=== PATIENT | female | born 1955 | race Caucasian/White ===

== ENCOUNTER 2016-10-07 15:15 | Day surgery (SDC) | payer MEDICARE, BC ==
[~2016-10-07] VITALS: Ht 167.6 cm; Wt 101.0 kg
[~2016-10-07 15:15] MED LIST: HEPARIN SODIUM - IV 10,000 UNITS/10 ML VIAL ONE; HEPARIN-NS/PF INJ 500 ML ONE; MIDAZOLAM HCL 2 MG/2 ML VIAL ONE; VERAPAMIL HCL 5 MG/2 ML VIAL ONE
[2016-10-07] MEDS ORDERED: MULT400T PO (16:05)
[2016-10-07] MEDS ORDERED: METO50TA PO (16:05)
[2016-10-07] MEDS ORDERED: ROSU40 PO (16:05)
[2016-10-07] MEDS ORDERED: WARF-23 PO (16:05)
[2016-10-07 16:06] VITALS: BP 148/97; PULSE 89; RESP 18; TEMP 98.1; O2SAT 97
[2016-10-07] MEDS ORDERED: POVIDONE IODINE 5% (ANTISEPSIS KIT) 4 APPLICATIONS EACH NARE PRN (16:30)
[2016-10-07] MEDS ORDERED: SODIUM CHLORID 0.9% 500 ML IV PRN (16:30)
[2016-10-07] MEDS ORDERED: INSULIN HUMAN REGULAR 1,000 UNITS/10 ML VIAL SQ PRN (16:30)
[2016-10-07] MEDS ORDERED: LEVOFLOXACIN 500 MG PREMIX INJ 100 ML IV ONE (16:30)
[2016-10-07] MEDS ORDERED: METOPROLOL TARTRATE 25 MG TAB PO PRN (16:30)
[2016-10-07] MEDS ORDERED: LACTATED RINGER'S 1000 ML IV PRN (16:30)
[2016-10-07] MEDS ORDERED: LORazepam 1 MG TAB SL SCH (16:30)
[2016-10-07] MEDS ORDERED: CHLORHEXIDINE GLUCONATE 2 % 1 PACK (2 CLOTHS) TOPICAL PRN (16:30)
[2016-10-07] MEDS ORDERED: SODIUM CHLORID 0.9% 500 ML INJ 500 ML IV SCH (16:30)
[2016-10-07 16:49] LABS: AUTOMATED NEUTROPHIL # 5.4 TH/MM3 (1.8-7.7); BASOPHIL # 0.1 TH/MM3 (0-0.2); BASOPHIL % 0.8 % (0.0-2.0); EOSINOPHIL # 0.1 TH/MM3 (0-0.4); EOSINOPHIL % 1.1 % (0.0-4.0); HEMATOCRIT 41.7 % (35.0-46.0); HEMO FLAGS DIFF FINAL; LYMPH % 31.8 % (9.0-44.0); MEAN CELL VOLUME 89.1 FL (80.0-100.0); MEAN CORPUSCULAR HEMOGLOBIN 29.6 PG (27.0-34.0); MEAN CORPUSCULAR HGB CONC 33.3 % (32.0-36.0); MONO % 7.6 % (0.0-8.0); NEUT % 58.7 % (16.0-70.0); PLATELET COUNT 355 TH/MM3 (150-450); RED BLOOD COUNT 4.68 MIL/MM3 (4.00-5.30); RED CELL DISTRIBUTION WIDTH 13.8 % (11.6-17.2); WHITE BLOOD COUNT 9.3 TH/MM3 (4.0-11.0)
[2016-10-07 16:53] LABS: APTT (PATIENT) 40.9 SEC (24.3-30.1); INTERNATIONAL NORMALIZED RATIO 2.3 RATIO; PROTHROMBIN TIME - PATIENT 26.2 SEC (9.8-11.6)
[2016-10-07 16:58] LABS: POTASSIUM 3.9 MEQ/L (3.5-5.1)
[2016-10-07] MEDS ORDERED: PROPOFOL 200 MG/20 ML AMP IV ONE (17:03)
[2016-10-07] MEDS ORDERED: SODIUM CHLORID 0.9% 500 ML BAG IV ONE (17:03)
[2016-10-07] MEDS ORDERED: HEPARIN SODIUM - IV 10,000 UNITS/10 ML VIAL ONE (17:07)
[2016-10-07] MEDS ORDERED: PROTAMINE SULFATE 50 MG/5 ML VIAL ONE (17:07)
[2016-10-07] MEDS ORDERED: HEPARIN-D5W INJ 250 ML ONE (17:07)
[2016-10-07] MEDS ORDERED: FUROSEMIDE 40 MG/4 ML VIAL ONE (17:07)
[2016-10-07] MEDS ORDERED: ISOPROTERENOL HCL 1 MG/5 ML AMP ONE (17:07)
[2016-10-07] MEDS ORDERED: MIDAZOLAM HCL 2 MG/2 ML VIAL ONE (17:08)
[2016-10-07] MEDS ORDERED: fentaNYL CITRATE 250 MCG/5 ML AMP ONE (17:08)
[2016-10-07] MEDS ORDERED: HEPARIN-NS/PF INJ 500 ML ONE (17:24)
[2016-10-07] MEDS ORDERED: LORazepam 2 MG/ML VIAL IV PRN (19:30)
[2016-10-07] MEDS ORDERED: ATROPINE SULFATE 1 MG/ML VIAL IV PRN (19:30)
[2016-10-07] MEDS ORDERED: SODIUM CHLOR 0.9% 250 ML INJ 250 ML IV PRN (19:30)
[2016-10-07] MEDS ORDERED: LIDOCAINE HCL 1% 50 ML VIAL INFIL PRN (19:30)
[2016-10-07] MEDS ORDERED: ONDANSETRON HCL 4 MG/2 ML VIAL IV PRN (19:30)
[2016-10-07] MEDS ORDERED: oxyCODONE/ACETAMINOPHEN 5 MG/325 MG TAB PO PRN ×2 (19:30)
[2016-10-07] MEDS ORDERED: BACITRACIN OINT 0.9 GM PKT TOP ONE (19:30)
[2016-10-07] MEDS ORDERED: METOCLOPRAMIDE HCL 10 MG/2 ML VIAL IV PRN (19:30)
--- NOTE | 2016-10-07 19:42 | CATHPROC ---
[facility] HIS Report Study Information Study Number Admission Scheduled Start Study Start [id number] Oct 07 2016 3:15PM 10/07/2016 Oct 07 2016 4:17PM [place] Service Electrophysiology Study Admit Source Facility Department Other [facility] - Strategic Partner Development Manager Physician and Clinical Staff Initial Hugh Rowley Netting Inspector Brijesh Rossi,RT(R) Other Anesthesia, PAINT PREP TECHNICIAN Recorder Lucrecia Corral,RN Recorder Ema Jefferson,JENNIFFERRN Scrub Tammie Jean RCIS Procedures Performed Procedure Location (Site) Vessel Name Ablation Procedure ICE CATHETER INSERT RA Atruim Wire insertion Fem Vein (right) Femoral Vein Equipment Time Airport Maintenance Laborer Description Size Mfg Part Number Used/Scraped NEEDLE, TRANSSEPTAL NRG 98 16:19 [facility] [id number] Used C1 [employer]/ EP 16:19 KIT, TRANSDUCER / AFIB [id number] Used PACER [id number] CATHETER, TACTICATH ABLAT BUNDLE 16:19 B[facility] Used 65 BUNDLE *[id number] BUNDLE [id number] CATHETER, FR7 OPTIMA SPIRAL 16:19 B[facility] FR7 *[id number]- Used BUNDLE BUNDLE [id number] 16:19 [facility]UND[facility] CATHETER, JSN, QUAD BUNDLE FR 5 *[id number]- Used BUNDLE [id number] 16:19 BUND[facility] CATHETER, JSN, QUAD BUNDLE FR 5 *[id number]- Used BUNDLE [id number] SET, COOL POINT TUBING 16:19 BUND[facility] *[id number]- Used BUNDLE BUNDLE SHEATH, FR8.5 STEERABLE SM 16:19 BUND[facility] 71CM [id number] Used 71CM BUNDLE COVER, TRANSDUCER CABLE 16:19 [employer] [id number] Used ACUNAV 16:19 CORDIS/PACER SHEATH, FR10 ALFIE 11CM FR 10 [id number] Used 16:19 CORDIS/PACER SHEATH, FR9 ALFIE 11CM FR 9 [id number] Used [id number] 16:19 [employer] INDUSTRIES PACK, CCL CUSTOM * Used *[id number] 16:19 MEDLINE PACER FARNSWORTH, LIMB * [id number] *[id number] Used [id number] 16:19 [employer] MEDICAL SHEATH, FR4.5 PRELUDE 11CM FR 4.5 Used [id number] 17:43 NAMIC TUBING, HIGH PRESSURE 20" 20" Used *[id number] 16:19 NAMIC TUBING, HIGH PRESSURE 48" 48" Used *[id number] 16:19 NAMIC TUBING, HIGH PRESSURE 48" 48" Used *[id number] 16:19 YANG MEDICAL BLANKET,WARM AIR CCL * Used *[id number] 16:19 [facility] MEDICAL ELECTRODE KIT, WILVER X SURFACE * [id number] Used 16:19 [facility] MEDICAL SHEATH, EPS, FR6 FAST CATH FR [address] [id number] Used 16:19 [facility] MEDICAL SHEATH, EPS, FR7 FAST CATH FR 7 [id number] Used 16:19 [facility] MEDICAL SHEATH, EPS, FR8 FAST CATH FR 8 [id number] Used CATHETER, ACUNAV FR10 ICE [id number] 18:24 REMA FR 10 Used (REMA) *[id number] [facility] PAD, ELECTROSURGICAL 16:19 * [id number] *[id number] Used SURGICAL GROUNDING (BLUE) History: Current Medications Medication Dosage/Unit Route Frequency Last Date/Time Taken Beta Alana Statins (any) Coumadin History: Allergies Allergy Reaction NKDA No Known Allergies History: Risk Factors Family History of Hypertension Dyslipidemia Previous NH Previous Heart Failure Premature CAD No No No No No Prior Valve Prior PCI Prior CABG Surgery No No No Cerebrovascular Peripheral Artery Chronic Lung On Dialysis Diabetes Disease Disease Disease No Yes No Yes No History: Symptoms/Diagnosis Selection Items SANCHEZ Palpitations Labs Hgb (g/dl) Hct (%) RBC (MIL/MM3) WBC (l/cumm) Platelets (thousands) 11.60-17.00 35.00-51.00 4.00-5.90 4.00-11.00 150.00-450.00 13.0 41 4.6 9.3 355 Glucose (mg/dl) BUN (mg/dl) Creatinine (mg/dl) BUN:Creatinine (1:x) 74.00-106.00 7.00-18.00 0.50-1.30 10.00-20.00 91 11 0.9 12.2 Na (meq/l) K (meq/l) Cl (meq/l) CO2 (mmol/L) Ca (mg/dl) 136.00-145.00 3.50-5.10 98.00-107.00 21.00-32.00 8.50-10.10 141 3.9 107 25 9.2 PT (sec) PTT (sec) INR (PTT:PT) 9.80-11.60 24.30-30.10 0.90-1.10 26.2 40.9 2.3 Medication Medication Total Dose (Bolus/Oral) Medication Total Dosage/Unit 1% XYLOCAINE 40 mL HEPARIN 6000 units PROTAMINE 40 mg Medications (Bolus/Oral) Medication Time Given Dosage/Unit Administered By Reason 1% XYLOCAINE 10/07/2016 6:07:09 PM 20 mL Hugh Devine For pain 20 mL 1% XYLOCAINE given in lab by Hugh Devine in Left Groin via Subcutaneous. Ordered by Tono Devine. Reason: For pain. 1% XYLOCAINE 10/07/2016 6:12:21 PM 20 mL Hugh Devine For pain 20 mL 1% XYLOCAINE given in lab by Hugh Devine in Right Groin via Subcutaneous. Ordered by Elsi Devine. Reason: For pain. HEPARIN 10/07/2016 6:19:56 PM 6000 units Anesthesia, PAINT PREP TECHNICIAN As per physicians v erbal order 6000 units HEPARIN given in lab by Anesthesia, PAINT PREP TECHNICIAN in Right Antecubital via Peripheral IV. Ordered b Hugh Quinonez. Reason: As per physicians verbal order. PROTAMINE 10/07/2016 7:16:30 PM 40 mg Anesthesia, PAINT PREP TECHNICIAN 40 mg PROTAMINE given in lab by Anesthesia, PAINT PREP TECHNICIAN. Ordered by Hugh Devine. Medication (Drip) Medication Time Given Dosage/Unit Concentration/Unit Diluent (ml) Solution HEPARIN DRIP 10/07/2016 6:43:00 PM 500 units/hr 63251 units 250 D5W 500 units/hr HEPARIN DRIP given in lab by Anesthesia, PAINT PREP TECHNICIAN in Right Antecubital via Peripheral IV. Pu mp/Drip Flow = 5 ml/hr [place] [address] units in 250 ml. Ordered by Hugh Devine. Reason: As per physicians verbal or antione. LEVAQUIN 10/07/2016 4:27:00 PM 100 mL/hr 500 100 NaCl .9 100 mL/hr LEVAQUIN given pre op in Right Antecubital via Peripheral IV. Pump/Drip Flow = 0 ml/hr usin g NaCl .9 with a concentration of 500 in 100 ml. Ordered by Hugh Devine. Reason: As per physicians verbal order. Initial Case Assessment Cardiovascular HR NIBP Chest Pain 105 112/74 0 Edema Present Skin color Skin None Normal Warm Dry Neurological State Oriented to time-place- Alert Moves all extremities person Respiration - General Respiration Rate SpO2 (%) (B/min) 18 100 Chronological Log Time Study Chronological Log 100 mL/hr LEVAQUIN given pre op in Right Antecubital via Peripheral IV. Pump/Drip Flow = 0 ml/ hr using NaCl .9 with 16:27:00 a concentration of 500 in 100 ml. Ordered by Hugh Devine. Reason: As per physicians verbal o rder. 17:06:10 Patient arrived via Bed. 17:06:10 Patient Name, D.O.B, / Armband Verified By R.N. 17:06:11 Consent signed by the physician and the patient and verified by the Strategic Partner Development Manager staff. 17:06:12 Pre-op and post- op instructions given; patient acknowledges understanding of instructions . 17:06:12 Verbal Stimulation=2 Physical Stimulation=2 Airway=2 Respiration=2 TOTAL=8. (0=absent, 1=l imited, 2=present) 17:06:22 Anesthesia at bedside. Assumes care of patient. Amanda PAINT PREP TECHNICIAN 17:06:24 Patient has been NPO for More than 6Hrs. 17:06:25 Skin Breakdown- left temporal with red scab that pt picks 17:06:43 Patient Warmer Placed on the Table. 17:06:44 Disposable Defibrillator Pads Placed On Patient. 17:06:45 Tianna Prominences Protected 17:06:46 A # 20 IV was noted in the Antecubital (left). Grade = 0 0.9ns kvo 17:06:47 A # 20 IV was noted in the Antecubital (right). Grade = 0 0.9ns kvo 17:06:49 History and physical on the chart or being dictated. Assessment: Initial Case, ZX=162 BPM, SFZZ=701/74 mmhg, Chest Pain=0, Edema=None, Color=Normal, Skin = Warm, Dry 17:15:00 Neurological: State=Alert, Ox3, POOLE Respiration: Resp=18 B/min, FwY2=095 % 17:27:48 Table restraints applied according to hospital policy 17:27:53 Right groin prepped with 2% chlorhexidine, and with a 3 min. waiting time. 17:27:59 Left groin prepped with 2% chlorhexidine, and with a 3 min. waiting time. 17:35:36 MD notified ready. 17:35:53 MD responded 17:46:13 Reference ECG taken 18:00:22 MD arrived. 18:03:42 Immediate Presedation assesment performed by physician. Time Out. Correct patient, procedure, procedure equipment, site and side verified with physicia n present. Time 18:03:45 concurred by MD, individual staff and PAINT PREP TECHNICIAN. Time Out #2 - Consents verified, patient in correct position, all results are labled and displa yed, safety precautions 18:03:52 taken, antibiotics administered. Time out concurred by MD, individual staff and PAINT PREP TECHNICIAN in procedu re 18:03:55 Case Start 18:04:22 JAMES begun at bedside by 18:06:09 JAMES completed at bedside. 20 mL 1% XYLOCAINE given in lab by Hugh Devine in Left Groin via Subcutaneous. Ordered by Hugh Jimenez. 18:07:09 Reason: For pain. 18:07:31 Vascular access was obtained in the Fem Art (left). 18:07:50 Vascular access was obtained in the Fem Vein (left). 18:07:54 Vascular access was obtained in the Fem Vein (left). 18:07:57 Vascular access was obtained in the Fem Vein (left). 18:08:09 A SHEATH, FR4.5 PRELUDE 11CM FR 4.5 was advanced into the Fem Art (left) using the Percutan eous technique. 18:08:28 A SHEATH, EPS, FR6 FAST CATH FR 6 was advanced into the Fem Vein (left) using the Percutane ous technique. 18:08:51 A SHEATH, EPS, FR7 FAST CATH FR 7 was advanced into the Fem Vein (left) using the Percutane ous technique. 18:09:06 A SHEATH, FR10 ALFIE 11CM FR 10 was advanced into the Fem Vein (left) using the Percutaneo us technique. 20 mL 1% XYLOCAINE given in lab by Hugh Devine in Right Groin via Subcutaneous. Ordered by Hugh Scott. 18:12:21 Reason: For pain. 18:12:45 Vascular access was obtained in the Fem Vein (right). 18:12:50 A SHEATH, EPS, FR8 FAST CATH FR 8 was advanced into the Fem Vein (right) using the Percutan eous technique. A CATHETER, JSN, QUAD BUNDLE FR 5 was advanced vis Fem Vein (left) and placed in the CS. Placem ent was visually 18:14:09 confirmed under fluoroscopy. A CATHETER, JSN, QUAD BUNDLE FR 5 was advanced vis Fem Vein (left) and placed in the HIS. Place ment was 18:14:28 visually confirmed under fluoroscopy. 18:15:00 CATHETER, ACUNAV FR10 ICE ([employer]) FR 10 Was Postioned. A SHEATH, FR8.5 STEERABLE SM 71CM BUNDLE 71CM was exchanged in the Fem Vein (right). This was n ecessary in 18:18:50 order to accomodate a larger catheter. 18:19:30 Snyder needle inserted into steerable sheath. 6000 units HEPARIN given in lab by Anesthesia, PAINT PREP TECHNICIAN in Right Antecubital via Peripheral IV. Ord ered by Hugh Devine. 18:19:56 Reason: As per physicians verbal order. A CATHETER, FR7 OPTIMA SPIRAL BUNDLE FR7 was advanced to the right atrium and passed through th e septal wall 18:21:26 to the left atrium. 18:21:58 Mapping in progress. 18:24:00 Activated Clotting Time Drawn 18:29:46 Mapping complete. 18:29:59 Vaiden catheter removed. A CATHETER, TACTICATH ABLAT 65 BUNDLE was advanced vis Fem Vein (right) and placed in the LA. P lacement was 18:30:41 visually confirmed under fluoroscopy. 18:33:00 ACT (Normal Range 90-180) = 369 18:35:22 Ablation in progress. 500 units/hr HEPARIN DRIP given in lab by Anesthesia, PAINT PREP TECHNICIAN in Right Antecubital via Peripheral IV. Pump/Drip Flow = 18:43:00 5 ml/hr [place] [address] units in 250 ml. Ordered by Hugh Devine. Reason: As per physicians verbal order. 18:55:42 Tacticath Catheter was removed 18:58:48 Incremental Atrial Pacing in progress A CATHETER, TACTICATH ABLAT 65 BUNDLE was advanced vis Fem Vein (right) and placed in the LA. P lacement was 19:00:25 visually confirmed under fluoroscopy. 19:03:39 Isoprel drip started 19:11:17 Isoprel gtt stopped 19:13:15 A .032 wire was inserted via Fem Vein (right). 19:13:59 All Catheters removed 19:14:39 A SHEATH, FR9 ALFIE 11CM FR 9 was exchanged in the Fem Vein (right). This was necessary in order ~REASON~. 19:15:28 Ablation procedure performed: AFIB. 19:15:35 EP Procedure was performed. 19:16:30 40 mg PROTAMINE given in lab by Anesthesia, PAINT PREP TECHNICIAN. Ordered by Hugh Devine. 19:18:15 Case End 19:18:18 No case complications noted. 19:18:58 Sheaths to be removed in PACU 19:29:47 ACT (Normal Range 90-180) = 151 19:30:40 PACU called. Spoke to Michele ANDREWS 19:38:59 Bedside Report will be given. 19:41:25 Patient moved to [facility] End Study - Maximum Contrast Load Max Contrast Load (mL) 511.1 End Study - Radiation Exposure Fluoro Time (minutes) 1.2 End Study - Patient Disposition Complications Transferred To Not selected Telemetry Bed
[2016-10-07] MEDS ORDERED: DO NOT ADM ANY ANTICOAGULANT DRUGS PRN (19:49)
[2016-10-07] MEDS ORDERED: *morphine SULFATE 8 MG/ML PERIprocedure ONLY ONE (19:53)
[2016-10-07 22:15] VITALS: BP 116/70; PULSE 77; RESP 16; TEMP 97.6; O2SAT 100
[2016-10-07 23:00] VITALS: BP 97/58; PULSE 76; PULSE 78; RESP 16; TEMP 98.1; O2SAT 98
[2016-10-07] MEDS: AMIODARONE 200 MG TAB PO SCH (23:14)
[2016-10-08] VITALS (15 sets, daily range): BP systolic 108–128; BP diastolic 67–73; PULSE 70–90; RESP 16–18; TEMP 97.5–98.7; O2SAT 96–99
[2016-10-08 05:45] LABS: APTT (PATIENT) 36.2 SEC (24.3-30.1); INTERNATIONAL NORMALIZED RATIO 2.2 RATIO; PROTHROMBIN TIME - PATIENT 25.3 SEC (9.8-11.6)
[2016-10-08] MEDS: AMIODARONE 200 MG TAB PO SCH (08:44)
[2016-10-08] MEDS ORDERED: ATORVASTATIN 80 MG TAB PO SCH (09:00)
[2016-10-08] MEDS ORDERED: NON-FORMULARY DRUG (Rosuvastatin (Crestor) 40 MG) PO SCH (09:00)
--- NOTE | 2016-10-08 11:45 | EKG ---
Date Performed: 10/07/2016 Time Performed: 16:20:42 PTAGE: 61 years EKG: Atrial fibrillation with rapid ventricular response Nonspecific ST abnormalities Abnormal E CG NO PREVIOUS TRACING DOCTOR: Jerome Gaona Interpretating Date/Time 10/08/2016 11:43:31
--- NOTE | 2016-10-08 11:45 | EKG ---
Date Performed: 10/07/2016 Time Performed: 20:28:59 PTAGE: 61 years EKG: Sinus rhythm ST DEVIATION AND MODERATE T-WAVE ABNORMALITY, CONSIDER ANTERIOR ISCHEMIA ABNORMAL ECG PREVIOUS TRACING : 10/07/2016 16.20 Compared to the prior tracing, the patient is no longer in atrial fibrillation. Anterior ST-T wave abnormalities more prominent. Clinical correlation needed. DOCTOR: Jerome Gaona Interpretating Date/Time 10/08/2016 11:44:14
--- NOTE | 2016-10-08 11:45 | PD.CARD ---
Atrial Fibrillation Ablation PROCEDURE DATE: Oct 07, 2016 PROCEDURES PERFORMED: 1. Electrophysiology study on Isuprel infusion 2. CS cannulation 3. 3-D mapping 4. Transseptal approach 5. Right and left heart catheterization 6. Intracardiac echo 7. Radiofrequency ablation of atrial fibrillation 8. Pulmonary vein isolation 9. Posterior wall ablation 10. Mitral line creation 11. Anterior wall ablation INDICATIONS FOR THE PROCEDURE Ms. Madera is a 61-year-old female with atrial fibrillation, previous ablation over 5 years ago referred for electrophysiology study and ablation. The patient is symptomatic and on anticoagulation. The risks, the nature and the benefits of the procedure were clearly stated to her. The risks include pneumothorax, cardiac perforation, stroke, need for open heart surgery and even . The patient understood and agreed to proceed. DESCRIPTION OF THE PROCEDURE IN DETAIL As written informed consent was obtained prior to esophageal echocardiogram, the patient was kept on the table where she was prepped and draped in the usual sterile fashion. Conscious sedation was initiated and maintained throughout the procedure by the anesthesiologist. Once sedation was verified, the right and left inguinal areas were anesthetized with 2% Xylocaine. Using modified Seldinger technique, the left femoral vein was cannulated on three occasions, three guidewires were advanced. Over the wire a 6, 7 and a 10-[place]e Hemaquet were advanced. Then the left femoral artery was cannulated on one occasion, one guidewire was advanced. Over the wire a 4-[place] Hemaquet was advanced. Then the right femoral vein was cannulated on one occasion, one guidewire was advanced. Over the wire a 8-[place]e Hemaquet was advanced. Then under fluoroscopic guidance through the 6 and 7-[place]e Hemaquet, two 5-[place]alese Amina curved quadripolar electrophysiology catheters were advanced and placed around the His as well as coronary sinus. Basic interval was measured. The patient was in atrial fibrillation. Through the 10-[place]alese Hemaquet, a Cordis Leggett AcuNav intracardiac echo catheter was advanced and placed at the right atrium. Multiple view was obtained. There is pericardial effusion, pulmonary vein was seen, atrial septal was visualized. Then the 8-[place]alese Hemaquet in the right femoral vein was exchanged for Agilis transseptal sheath that was placed all the way to the superior vena cava. Through the sheath a Jairo needle was advanced, then the sheath, the dilator and the needle were progressed until foci engaged. Once engaged, the needle was advanced. RF was delivered for 2 seconds. I was able to cross into the left atrium. Once the needle crossed, the dilator was advanced. Once the dilator crossed, the sheath was advanced. Once the sheath crossed, the dilator and the needle were removed. At this point I did flood the system and fluid movement was seen in the left atrium the indicates the sheath is in good position. The patient already received 10,000 units of heparin. The goal is to keep an ACT around 350 during ablation. Then through the sheath a [place] 20 pulse circumferential catheter was advanced. Using [employer] endocardial solution mapping system, a two-dimensional configuration of the left atrium was obtained. Points were taken at the left superior and inferior veins, right superior and inferior veins, mitral valve, and appendages. Then through the sheath a [place] TactiCath 65cm 3.5mm irrigated tipped mapping and radiofrequency ablation catheter was advanced. Esophageal probe was placed temperature monitoring during ablation. When it increased to 0.5 degrees Celsius above baseline, I moved to a different area of the atrium. First I did isolate the left superior and inferior vein. During isolation of the left inferior vein, patient converted back into sinus rhythm. I did make a ekuk around the veins. Posterior was ablated. Then a mitral line was created. Then the right superior and inferior veins were isolated. I did remap the atrium. There is no significant signal in the atrium. At that point I did advance the circumferential catheter again into the vein. There was no signal into the vein, pacing from the vein showed no conduction to the atrium. Isuprel infusion was initiated at 20 mcg for over 10 minutes. No tachyarrhythmia was induced, post Isuprel no tachyarrhythmia was induced. At that point the procedure was complete. All catheters were removed, atrial septal sheath was exchanged for 9-Senegalese Hemaquet, intracardiac echo showed no pericardial effusion. There is still good flow in the pulmonary vein. The patient is going to be transferred to the recovery room. No incident report. The patient tolerated the procedure. Blood loss was minimal. FINDINGS 1. Electrocardiogram: At baseline the patient was in atrial fibrillation, post procedure the patient was in sinus rhythm. 2. Basic interval: Base cycle length was around 510ms. Post ablation she was around 940 milliseconds. AH at 100 and HV at 56 milliseconds. 3. Tachyarrhythmia: Atrial fibrillation was mapped and ablated. The ablation was successful. CONCLUSION Successful electrophysiology study, mapping, radiofrequency ablation of atrial fibrillation, pulmonary vein isolation, posterior ablation, mitral line creation. COMMENTS AND RECOMMENDATIONS The patient is going to be transferred to the telemetry unit. Will be observed and when stable can be discharged home. Hugh Devine MD Oct 08, 2016 11:45
--- NOTE | 2016-10-08 11:47 | HHI.PR ---
Subjective Remarks Feeling better Objective Vital Signs Date Time Temp Pulse Resp B/P Pulse Ox O2 Delivery O2 Flow Rate FiO2 10/08/16 10:54 77 10/08/16 10:00 78 10/08/16 09:00 74 10/08/16 08:00 70 10/08/16 07:30 78 10/08/16 07:30 97.8 74 16 128/73 98 10/08/16 07:00 90 10/08/16 06:00 71 10/08/16 05:00 73 10/08/16 04:00 74 10/08/16 03:00 77 10/08/16 03:00 97.5 77 18 110/73 96 10/08/16 02:00 74 10/08/16 01:00 75 10/08/16 00:00 75 10/07/16 23:00 98.1 76 16 97/58 98 10/07/16 23:00 78 10/07/16 22:15 97.6 77 16 116/70 100 10/07/16 22:15 77 10/07/16 21:45 97.7 74 14 102/58 100 Nasal Cannula 2 10/07/16 21:30 74 11 101/55 100 Nasal Cannula 2 10/07/16 21:15 73 10 97/59 100 Nasal Cannula 2 10/07/16 21:00 73 12 98/57 100 Nasal Cannula 2 10/07/16 20:50 71 15 103/58 100 Nasal Cannula 2 10/07/16 20:45 71 12 95/56 100 Nasal Cannula 2 10/07/16 20:30 70 23 99/57 100 Nasal Cannula 2 10/07/16 20:15 68 13 105/56 100 Nasal Cannula 2 10/07/16 20:05 71 15 114/61 100 Nasal Cannula 2 10/07/16 19:53 74 26 151/66 100 Nasal Cannula 2 10/07/16 19:51 71 30 107/66 100 Nasal Cannula 2 10/07/16 19:47 97.5 72 22 100/62 100 Nasal Cannula 2 10/07/16 16:06 98.1 89 18 148/97 97 I/O 10/07/16 10/07/16 10/07/16 10/08/16 10/08/16 10/08/16 07:00 15:00 23:00 07:00 15:00 23:00 Intake Total 2000 ml 720 ml Output Total 750 ml 550 ml Balance 1250 ml 170 ml Intake Oral 720 ml Other 2000 ml Output Urine Total 550 ml Other 750 ml # Bowel Movements 0 Result Diagram: 10/07/16 1545 10/07/16 1545 Imaging Alert, fully oriented Lungs: ventilated Heart: S1, S2 regular , no gallop Abdomen soft, no mass Ext: no edema Current Medications Medications (Trade) Dose Ordered Sig/Noble Route Start Time Stop Time Status Last Admin Sodium Chloride 500 ml @ 30 mls/hr [id number] IV 10/07/16 16:30 Lactated Ringer's 1,000 ml @ 30 mls/hr Q24H PRN IV 10/07/16 16:30 10/10/16 16:29 (NS 500 ml Inj) 500 ml @ 30 mls/hr [id number] PRN IV 10/07/16 16:30 10/10/16 16:29 (Percocet 5-325 Mg) 1 tab Q4H PRN PO 10/07/16 19:30 (Percocet 5-325 Mg) 2 tab Q4H PRN PO 10/07/16 19:30 (Ativan Inj) 0.5 mg UNSCH PRN IV 10/07/16 19:30 10/08/16 19:29 Atropine Sulfate 0.5 mg 0.5 mg UNSCH PRN IV 10/07/16 19:30 (NS 250 ml Inj) 250 ml @ 500 mls/hr ONCE PRN IV 10/07/16 19:30 10/08/16 19:29 (Reglan Inj) 10 mg Q4H PRN IV 10/07/16 19:30 (Zofran Inj) 4 mg Q4H PRN IV 10/07/16 19:30 (Xylocaine 1% Inj (50 ml)) 10 ml UNSCH PRN INFIL 10/07/16 19:30 10/08/16 19:29 (Coumadin) 5 mg DAILY@16 PO 10/08/16 16:00 (Cordarone) 200 mg DAILY PO 10/07/16 21:00 10/08/16 08:44 (Lipitor) 80 mg DAILY PO 10/08/16 09:00 10/08/16 08:44 Miscellaneous Information ALL NURSING DEPARTME... UNSCH PRN .XX 10/07/16 19:49 10/08/16 19:48 Assessment and Plan Problem List: (1) Atrial fibrillation Status: Acute Plan: SP ablation. In sinus rhythm. Doing well Will be DH Follow up as previously scheduled. Multaq DC. Amio initiated (2) Palpitations Status: Acute Plan: No new episode since ablation Hugh Devine MD Oct 08, 2016 11:47
--- NOTE | 2016-10-08 11:47 | EKG ---
Date Performed: 10/08/2016 Time Performed: 05:25:58 PTAGE: 61 years EKG: Normal Sinus rhythm Anterior ST-T wave changes shows some evolutionary private branch exchange operator the past few tracings. Cannot exclude ischemia. Clinical correlation is needed. Abnormal ECG PREVIOUS TRACING : 10/07/2016 20.28 DOCTOR: Jerome Gaona Interpretating Date/Time 10/08/2016 11:45:52
[2016-10-08] MEDS ORDERED: AMIO200T PO (11:52)
[2016-10-08] MEDS ORDERED: WARFARIN SOD 5 MG TAB PO SCH (16:00)
== END 2016-10-08 12:45 | disposition home or self-care (01) ==
LOC: HDOC 15:15 → HDIC 15:16 → HCIN 22:14 → HDOC 10-08 12:45
PROVIDERS: ATTEND Internal Medicine Interventional Cardiology
DX: I48.2 Chronic atrial fibrillation (principal); G47.30 Sleep apnea, unspecified; Z79.01 Long term (current) use of anticoagulants
CPT/HCPCS: 80048; 85002; 85025; 85610; 85730; 93005; 93312; 93320; 93325; 93613; 93623; 93656; 93662; C1730; C1731; C1732; C1759; C1766; C2630; J1644; J1956; J2250; J2270; J2720; J3010; J7040; J1940